=== PATIENT | male | born 1960 | race Asian ===

== ENCOUNTER 2021-10-03 20:37 | Inpatient (IN) | payer OTHER ==
[~2021-10-03] VITALS: Ht 160 cm; Wt 63.5 kg
[~2021-10-03 20:37] MED LIST: VECURONIUM BROMIDE 10 MG/VIAL (NORCURON) ONE
[2021-10-03 20:40] VITALS: BP_SYST 59
--- NOTE | 2021-10-03 20:40 | NUR ---
Placed in room 01 . Placed on teletypesetter monitor, blood pressure machine and pulse oximeter. To gown for exam. Side rails up.
--- NOTE | 2021-10-03 20:42 | NUR ---
Dr Little evaluating patient at bedside
[2021-10-03] MEDS ORDERED: NOREPINEPHRINE 4 MG/4 ML VIAL IV ONE (20:45)
--- NOTE | 2021-10-03 20:45 | NUR ---
# 20 gauge angiocath placed to R AC. Use of asceptic technique. Opsite placed over site. Blood return noted. Blood for lab drawn from site. Flushed with 10 cc of normal saline. No evidence of infiltration noted. Patient tolerated well.
--- NOTE | 2021-10-03 20:45 | NUR ---
Pt BIB [facility] from home due to ALOC and respiratory distress. Per , Pt was noted altered around 1600 and called 911 later due to respiratory distress. 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 Arrived to ED with IO to [facility]; adequate blood return; flushed with NS and patent. Pt is a full code per . at bedside. at bedside. Addendum: 10/03/21 at 2963 by [id number] CHAPIN [place]
--- NOTE | 2021-10-03 20:50 | NUR ---
# 16 FR Jimenez catheter with use of sterile technique. Immediate return of 50 cc of jonelle colored urine noted. Bedside drainage bag placed below level of bladder. Pt tolerated procedure well.
[2021-10-03] MEDS ORDERED: DEXTROSE 50% JECT 50 ML DISP.SYRIN IVP ONE (21:00)
[2021-10-03] MEDS ORDERED: NACL 0.9% 2,000 ML IV ONE (21:15)
[2021-10-03] MEDS ORDERED: NOREPINEPHRINE BITARTRATE 4 MG in NS 246 ML IV ONE (21:15)
[2021-10-03] MEDS ORDERED: ALBUMIN HUMAN 5% 250 ML IV ONE (21:15)
[2021-10-03] MEDS: D10W 1,000 ML IV SCH (21:20)
--- NOTE | 2021-10-03 21:26 | NUR ---
Pt off the unit for CT
[2021-10-03] MEDS ORDERED: VECURONIUM BROMIDE 10 MG/VIAL (NORCURON) IVP ONE (21:30)
--- NOTE | 2021-10-03 21:38 | NUR ---
Pt returned from CT at this time
[2021-10-03] MEDS ORDERED: ALBUMIN HUMAN 25% 100 ML IV ONE ×2 (21:46→22:30)
[2021-10-03 21:48] LABS: ANION GAP 24 (5-15); CHLORIDE 101 mmol/L (98-107); CREATININE 3.13 mg/dL (0.55-1.30); GLUCOSE 200 mg/dL (70-99); POTASSIUM 3.7 mmol/L (3.5-5.1); SODIUM SERUM 131 mmol/L (136-145); UREA NITROGEN, BLOOD 88 mg/dL (8-21)
[2021-10-03 21:55] LABS: ALANINE AMINOTRANSFERASE 163 U/L (12-78); ALBUMIN < 0.6 g/dL (3.4-4.8); ASPARTATE AMINOTRANSFERASE 742 U/L (10-37); TOTAL BILIRUBIN 11.7 mg/dL (0.0-1.0)
[2021-10-03 21:56] LABS: CALCIUM 6.4 mg/dL (8.4-11.0)
[2021-10-03 21:57] LABS: GFR AFRICAN AMERICAN 26 mL/min (>90)
[2021-10-03 22:02] LABS: ACETAMINOPHEN < 1 ug/mL (1-30)
[2021-10-03 22:03] LABS: MEAN CORPUSCULAR HEMOGLOBIN 33 pg (27-31); MEAN CORPUSCULAR HGB CONC 29 % (32-36)
[2021-10-03 22:10] LABS: HEMATOCRIT 20.8 % (36-54); MEAN CORPUSCULAR VOLUME 115 fL (79.0-98.0); RED BLOOD CELL COUNT(AUTO) 1.81 MIL/uL (4.2-6.2); WHITE BLOOD COUNT (AUTO) 22.8 K/uL (4.8-10.8)
[2021-10-03 22:11] LABS: PLATELET COUNT (AUTO) 68 K/uL (130-430); RED CELL DISTRIBUTION WIDTH 18.5 % (9.0-15.0)
[2021-10-03 22:16] LABS: BAND % (MANUAL) 3 % (0-6); BASOPHILS % (MANUAL) 0 % (0-2); EOSINOPHILS % (MANUAL) 0 % (0-7); LYMPHOCYTES % (MANUAL) 1 % (20-46); METAMYELOCYTES % 4 % (0-0); MONOCYTES % (MANUAL) 4 % (0-11)
--- NOTE | 2021-10-03 22:24 | NUR ---
Admit bed requested Patient will be admitted to care of . Admitted to ICU unit. Diagnosis Acute Resp Failure Inpatient (Yes or No) yes Observation (Yes or No) no Orientation concerns or request close to nursing station (Yes or No) no Covid Status pending On vent or bipap yes Isolation requirements no Needs a sitter no From Home (Yes or if No enter name of facility) yes Requires Dialysis (Yes or No) no Med Rec Completed (Yes of No) pending
[2021-10-03 22:29] LABS: ACETONE, SERUM NEGATIVE (NEGATIVE)
[2021-10-03] MEDS ORDERED: NACL 0.9% 1,000 ML IV ONE (22:30)
[2021-10-03] MEDS ORDERED: SODIUM BICARBONATE 8.4% JECT 50 MEQ/50 ML SYRINGE IVP ONE (22:30)
[2021-10-03] MEDS ORDERED: PIPERACILLIN/TAZO 3.375 GM in NS 50 ML IV ONE (22:30)
[2021-10-03] MEDS ORDERED: VANCOMYCIN HCL 1,000 MG in NS 250 ML IV ONE (22:30)
[2021-10-03] MEDS ORDERED: PANTOPRAZOLE SODIUM 80 MG in NS 100 ML IVP ONE ×2 (23:15)
[2021-10-03] MEDS: PANTOPRAZOLE SODIUM 40 MG in NS 50 ML IV SCH (23:15)
[2021-10-03] MEDS ORDERED: HYDROCORTISONE SOD SUCC 100 MG/2 ML VIAL IVP ONE (23:15)
[2021-10-03] MEDS ORDERED: OCTREOTIDE ACETATE 500 MCG in NS 97.5 ML IV SCH (23:15)
[2021-10-03] MEDS ORDERED: OCTREOTIDE ACETATE 50 MCG/ML AMP IVP ONE (23:15)
[2021-10-03] MEDS ORDERED: CALCIUM CHLORIDE 1 GM/10 ML DISP.SYRIN (14 mEq Ca++/SYR) IVP ONE (23:15)
[2021-10-03 23:25] VITALS: BP_SYST 103
--- NOTE | 2021-10-03 23:25 | NUR ---
Patient will be admitted to [facility]. Admitted to ICU unit. Will go to room ICU-6. Complete and up to date summary report printed. SBAR report given at bedside with opportunity for questions.
[2021-10-03 23:29] LABS: INR 7.2 (0.80-1.20); PROTHROMBIN TIME 64.4 SECS (9.5-12.5)
[2021-10-03] MEDS ORDERED: ALBUMIN HUMAN 25% 200 ML IV ONE (23:30)
[2021-10-03] MEDS ORDERED: D5NS 1,000 ML IV SCH (23:30)
--- NOTE | 2021-10-03 23:30 | NUR ---
Pt aware of transfer to ICU. Waiting in ICU waiting room until further notice.
[2021-10-03 23:43] VITALS: BP_SYST 119
[2021-10-03] MEDS ORDERED: [UNRECOGNIZED DRUG - CODE] PO (23:43)
[2021-10-03] MEDS ORDERED: LORA-259 PO (23:43)
[2021-10-03] MEDS ORDERED: MAGN400T10 PO (23:43)
[2021-10-03] MEDS ORDERED: POTA-197 PO (23:43)
[2021-10-03] MEDS ORDERED: ATEN-41 PO (23:43)
[2021-10-03] MEDS ORDERED: SENN8.6T19 PO (23:43)
[2021-10-03] MEDS ORDERED: TRAM50TA PO (23:43)
[2021-10-03] MEDS ORDERED: LOSA25TA3 PO (23:43)
[2021-10-03] MEDS ORDERED: FURO-150 PO (23:43)
[2021-10-03] MEDS ORDERED: HYOS0.1275 PO (23:43)
[2021-10-03] MEDS ORDERED: HAL2 PO (23:43)
[2021-10-03] MEDS ORDERED: ONDA-8 TL (23:43)
[2021-10-03] MEDS ORDERED: DEXTROSE 50% JECT 50 ML DISP.SYRIN IVP PRN (23:45)
[2021-10-04] VITALS (50 sets, daily range): BP systolic 81–141
[2021-10-04] LABS: ALCOHOL, BLOOD < 3 mg/dL (<10)
[2021-10-04 00:01] LABS: C-REACTIVE PROTEIN QUANT 4.7 mg/dL (0-0.5)
[2021-10-04] MEDS ORDERED: PANTOPRAZOLE SODIUM 40 MG/VIAL (PROTONIX) ONE ×2 (00:31)
[2021-10-04] MEDS: PANTOPRAZOLE SODIUM 40 MG in NS 50 ML IV SCH ×7 (00:38→23:33)
[2021-10-04] MEDS: D10W 1,000 ML IV SCH (00:39)
[2021-10-04] MEDS ORDERED: PIPERACILLIN/TAZOBACTAM 3.375 GM/VIAL (ZOSYN) IV ONE (00:44)
[2021-10-04] MEDS ORDERED: VANCOMYCIN HCL 1000 MG/VIAL IV ONE (00:44)
[2021-10-04] MEDS ORDERED: OCTREOTIDE ACETATE 200 MCG/1 ML 5ML VIAL ONE (00:55)
[2021-10-04] MEDS ORDERED: SODIUM BICARBONATE 8.4% JECT 50 MEQ/50 ML SYRINGE IVP ONE (01:15)
--- NOTE | 2021-10-04 01:15 | NUR ---
SPOKE TO DR DAWIT MONDRAGON RESULTS RELAYED TO HIM WITH ORDERS MADE AND CARRIED OUT, SEE CPOE. PRIMARY RN MADE AWARE.
[2021-10-04] MEDS ORDERED: SODIUM BICARBONATE 8.4% JECT 50 MEQ/50 ML SYRINGE ONE ×3 (01:26→12:49)
[2021-10-04] MEDS ORDERED: SODIUM BICARBONATE 8.4% VIAL 50 MEQ/50 ML VIAL ONE (01:26)
[2021-10-04] MEDS: SODIUM BICARBONATE 8.4% JECT 150 MEQ in D5W 1,000 ML IVP SCH ×3 (01:48→23:33)
[2021-10-04] MEDS ORDERED: CEFEPIME 1 GM in D5W 50 ML IV ONE (02:00)
[2021-10-04] MEDS ORDERED: NOREPINEPHRINE 4 MG/4 ML VIAL IV ONE (02:54)
[2021-10-04] MEDS: NOREPINEPHRINE BITARTRATE 32 MG in NS 218 ML IV PRN (03:05)
--- NOTE | 2021-10-04 03:50 | NUR ---
CONSULTATION PAGED/CALLED Reason for Consultation: ACUTE RENAL FAILURE Person Who was Notified: JEFF Consulting Physician: Laboratory Worker Specialty: Ordering Physician:
--- NOTE | 2021-10-04 03:55 | NUR ---
CONSULTATION PAGED/CALLED Reason for Consultation: SEPSIS Person Who was Notified: JEFF Consulting Physician: [employer] Specialty: ID Ordering Physician:
[2021-10-04] MEDS ORDERED: CEFEPIME 1 GM/VIAL (MAXIPIME) ONE (04:03)
--- NOTE | 2021-10-04 08:17 | NUR ---
Geriatric Nursing Assistant *LATE ENTRY* LINDY Vero responded to a request for social service consult to obtain additional information regarding end of life care from patient's spouse from ICU. TREASURY AGENT informed ICU Manufacturing Operations Manager was already addressing this issue. TREASURY AGENT also informed ICU patient's spouse shared patient's sibling was traveling from [place] in the hopes of being able to visit patient. TREASURY AGENT will continue to be available as needed
[2021-10-04] MEDS ORDERED: *CUBICIN 6 MG/KG Q48H/PHARMACY XX PRN (11:15)
[2021-10-04 11:34] LABS: BASOPHILS # (AUTO) 0.1 K/uL (0.0-0.2); BASOPHILS % (AUTO) 0.2 % (0.0-2.0); EOSINOPHILS # (AUTO) 1.4 K/uL (0.0-0.4); EOSINOPHILS % (AUTO) 4.9 % (0.0-4.0); HEMATOCRIT 30.4 % (36-54); HEMOGLOBIN 9.4 g/dL (14.0-18.0); LYMPHOCYTES # (AUTO) 0.5 K/uL (1.0-5.5); LYMPHOCYTES % (AUTO) 1.9 % (20.5-51.5); MEAN CORPUSCULAR HEMOGLOBIN 31 pg (27-31); MEAN CORPUSCULAR HGB CONC 31 % (32-36); MEAN CORPUSCULAR VOLUME 101 fL (79.0-98.0); MONOCYTES # (AUTO) 0.9 K/uL (0.0-1.0); MONOCYTES % (AUTO) 3.1 % (1.7-9.3); NEUTROPHILS # (AUTO) 26.3 K/uL (1.8-7.7); RED BLOOD CELL COUNT(AUTO) 3.01 MIL/uL (4.2-6.2); RED CELL DISTRIBUTION WIDTH 21.9 % (9.0-15.0); WHITE BLOOD COUNT (AUTO) 29.2 K/uL (4.8-10.8)
[2021-10-04 11:39] LABS: CREATININE 3.21 mg/dL (0.55-1.30); PLATELET COUNT (AUTO) 38 K/uL (130-430); POTASSIUM 4.1 mmol/L (3.5-5.1)
[2021-10-04 11:44] LABS: INR 3.1 (0.80-1.20)
--- NOTE | 2021-10-04 11:45 | NUR ---
Received a call from [facility] for critical value Platelet level 38. Will update Dr Weaver. Patient is currently receiving blood products including platelets.
[2021-10-04 11:51] LABS: ALBUMIN 1.3 g/dL (3.4-4.8)
[2021-10-04] MEDS ORDERED: NS IV SCH (12:00)
[2021-10-04] MEDS ORDERED: DAPTOMYCIN IV SCH (12:00)
[2021-10-04 12:01] LABS: TOTAL BILIRUBIN 14.6 mg/dL (0.0-1.0)
[2021-10-04 12:12] LABS: PROTHROMBIN TIME 29.1 SECS (9.5-12.5)
[2021-10-04 12:24] LABS: PHOSPHORUS 13.6 mg/dL (2.7-4.5)
[2021-10-04] MEDS ORDERED: SODIUM BICARBONATE 8.4% JECT 50 MEQ/50 ML SYRINGE IVP SCH (12:30)
[2021-10-04] MEDS ORDERED: FLUCONAZOLE 100 mg/ NS 50 ML IV SCH (13:00)
--- NOTE | 2021-10-04 13:59 | NUR ---
Spoke w/ patient's -June Hartman at [phone]. She stated she would like to take her home, if his medical condition allows, on hospice with [facility]. He was on [facility] when he came to the hospital. I asked her about the code status for her hsuband. She stated the MD told her he was doing poorly, she would like to keep him alive until October 11,when his sister is coming from [place]. He would like to see her, she is the only family he has.
[2021-10-04 14:05] LABS: NEUTROPHILS % (AUTO) 89.9 % (40.0-70.0)
--- NOTE | 2021-10-04 14:43 | NUR ---
Spoke w/patient's -June Hartman at [phone]. She stated the patient had been on home hospice w/ [facility] and she would like him to go back on hospice w/[facility] if his condition allows. I asked her about the code status for her and she stated the MD had informed her that her 's condition was poor. She also stated she wanted him to live until October 11. His sister is coming from [facility] on October 11 and he wants to see her, she is the only family he has. She did not give me a final answer as to the code status she wanted for her .
--- NOTE | 2021-10-04 17:31 | NUR ---
Called and spoke to Dr Henning regarding the aerobic gram negative jackie blood culture result. Patient is covered by [employer] antibiotics currently dosed on this admission.
[2021-10-05] VITALS (33 sets, daily range): BP systolic 80–111
[2021-10-05] MEDS ORDERED: CEFEPIME 1 GM in D5W 50 ML IV SCH (05:00)
[2021-10-05] MEDS: PANTOPRAZOLE SODIUM 40 MG in NS 50 ML IV SCH ×3 (05:11→15:08)
--- NOTE | 2021-10-05 06:20 | NUR ---
ALL CARES DONE, VSS, HYPOTHERMIC, WARMED BLANKET ON, MINIMAL MOBILITY AND TURNING DONE, OLIGURIC OUTPUT, AT BEDSIDE MOST OF THE NIGHT. NO SEDATION UNRESPONSIVE,PUPILS NON REACTIVE AND FIXED NO CORNEAL RESPONSE.NO GAG NO COUGH NOTED. LEVOPHED AT 0.17 MCG,PROTONIX DRIP AT 8MG/HR. REMAINS GENERALIZED ICTERIC AND ABDOMEN DISTENDED FIRM AND GUARDED, NO BM,NGT IN SITU TO LWIS WITH COFFEE GROUND ASPIRATES MODERATE AMOUNT.CONT CARE.
[2021-10-05 06:51] LABS: CREATININE 3.43 mg/dL (0.55-1.30); POTASSIUM 4.3 mmol/L (3.5-5.1); TOTAL BILIRUBIN 14.8 mg/dL (0.0-1.0)
[2021-10-05 07:58] LABS: HEMATOCRIT 26.2 % (36-54); HEMOGLOBIN 7.9 g/dL (14.0-18.0); MEAN CORPUSCULAR HEMOGLOBIN 32 pg (27-31); MEAN CORPUSCULAR HGB CONC 30 % (32-36); MEAN CORPUSCULAR VOLUME 104 fL (79.0-98.0); PLATELET COUNT (AUTO) 52 K/uL (130-430); RED BLOOD CELL COUNT(AUTO) 2.52 MIL/uL (4.2-6.2)
--- NOTE | 2021-10-05 08:00 | NUR ---
OPENING NOTE PT LYING IN BED WITH HOB ELEVATED 45 DEGREES. LUNG SOUNDS ARE DIMINISHED AND RHONCHI. HR IS AFIB IN THE HIGH 90'S. SBP IS 70'S-119'S. PT ON LEVOPHED AT 0.17 MCS/KG/MIN. 3 AMPS BICARB DRIP IN D5 WATER RUNNING AT 100MLS/HR. PROTONIX RUNNING AT 10MLS/HR. BED BRAKES ON, BED RAILS UP, CALL LIGHT WITHIN REACH. Addendum: 10/05/21 at 1553 by Rajeev Fong RN VENT SETTINGS: A/C 18 RESP/MIN, TIDAL VOLUME 400, FI02 100% AND PEEP 0. ET TUBE 7.5 AND 24CM AT THE LIP.
--- NOTE | 2021-10-05 08:25 | NUR ---
HIGH ALERT NOTE: Called Dr. PASTOR back at PHONE NUMBER identified within the medical roster to verify physician authenticity. DR WOULD LIKE TO GIVE MORPHINE 2 MG Q2HRS PRN.
--- NOTE | 2021-10-05 08:30 | NUR ---
DR GUZMAN AT BEDSIDE
[2021-10-05 08:33] LABS: WHITE BLOOD COUNT (AUTO) 31.1 K/uL (4.8-10.8)
[2021-10-05] MEDS ORDERED: MORPHINE 2 MG/ML INJ. SYRINGE ONE (08:41)
[2021-10-05] MEDS ORDERED: NALOXONE HCL 0.4 MG/ML AMP (NARCAN) IVP PRN ×2 (08:45→10:00)
--- NOTE | 2021-10-05 08:45 | NUR ---
AT BEDSIDE INFORMED DR GUZMAN WOULD LIKE TO EXTUBATE PT WHEN PT'S FRIEND ARRIVES. WILL FOLLOW ORDERS.
--- NOTE | 2021-10-05 09:00 | NUR ---
Received a critical lab results platelet 47 and CO2 10. Patient is on comfort measures at this time.
--- NOTE | 2021-10-05 09:00 | NUR ---
HIGH ALERT NOTE: Dr. GUZMAN AT BEDSIDE. MORPHINE DRIP TO BE ORDERED AND ADMINISTERED SHOULD DECIDE COMFORT MEASURES ONLY.
--- NOTE | 2021-10-05 09:05 | NUR ---
DR ROSALES AT BEDSIDE
[2021-10-05] MEDS ORDERED: SODIUM BICARBONATE 0.5 MEQ/ML VIAL INJ ONE (09:15)
[2021-10-05 09:47] LABS: PHOSPHORUS 27.2 mg/dL (2.7-4.5)
[2021-10-05] MEDS ORDERED: SODIUM BICARBONATE 8.4% JECT 50 MEQ/50 ML SYRINGE IVP ONE (10:00)
[2021-10-05] MEDS ORDERED: MORPHINE SULFATE IN 0.9 % NACL 100 ML IV PRN (10:00)
[2021-10-05 10:09] LABS: INR 4.9 (0.80-1.20); PROTHROMBIN TIME 44.7 SECS (9.5-12.5)
--- NOTE | 2021-10-05 10:25 | NUR ---
DR VAUGHAN AT BEDSIDE
[2021-10-05] MEDS: MORPHINE 2 MG/ML INJ. SYRINGE IVP PRN ×2 (10:50→12:47)
[2021-10-05] MEDS: SODIUM BICARBONATE 8.4% JECT 150 MEQ in D5W 1,000 ML IVP SCH ×2 (11:15→23:22)
--- NOTE | 2021-10-05 11:23 | NUR ---
RT NOTES PT REFUSED RT TO ENTER THE PT ROOM AT THIS TIME. UNABLE TO OBTAIN VENT CHECK AT THIS TIME. WILL CONTINUE TO MONITOR.
--- NOTE | 2021-10-05 12:46 | NUR ---
Marketing Intern [employer]ATERNITY HOUSE COOK met with in pts. ICU room, June Hartman who is very concerned for her and does not want him to suffer or feel any pain. stated she wants to take pt off all the vent and meds so he can pass away, but pts. sister in [facility] is planning to come over from [place] next Monday. feels that is a long time to have pt. on the vent and prolong his discomfort. stated pts. co-worker, Wayne , is on his way to this hospital and will call the sister in [place] and speak to her in Panamanian to explain this diffiuclt circumstances with her. wants the sister to know she would like to discontinue medical aid and provide comfort measures. FRATERNITY HOUSE COOK asked if there was someone would like to call to be her with her or to call any knowledge management advisor. stated she has no one and that they are practicing Buddhists. has places a winston cover over pt as well as placed a music player near pts. ears and it is playing music or chants. stated she tried to call a [employer] but they don't want to come because of Covid. FRATERNITY HOUSE COOK called [facility] Ervin, and spoke to a volunteer who will ask if someone will be able to come out. Volunteer did not want to give her name and stated if they do not call back, the answer is, there is no one available. FRATERNITY HOUSE COOK called Alexsander Garza, and left a message. FRATERNITY HOUSE COOK went back to the ICU and family friend, Wayne was in the room on face time with pts. sister in [facility]. Wayne stated the sister is still trying to decide. FRATERNITY HOUSE COOK told the she had the final decision as to what she decides to do. stated she is ok and does not need anything else. FRATERNITY HOUSE COOK asked her to call KRISTINA Pham if she needs anything else. Once pt. does pass away, stated she has planned to make arrangements with Greg Rivero at [phone]. FRATERNITY HOUSE COOK will remain available as needed.
--- NOTE | 2021-10-05 14:00 | NUR ---
MORPHINE DRIP STARTED AT 5MG/HR. AT BEDSIDE. EDUCATED REGARDING BENEFITS OF MORPHINE IN COMFORT MEASURES.
[2021-10-05 15:13] LABS: BAND % (MANUAL) 28 % (0-6)
[2021-10-05 15:14] LABS: BASOPHILS % (MANUAL) 0 % (0-2); EOSINOPHILS % (MANUAL) 0 % (0-7); LYMPHOCYTES % (MANUAL) 3 % (20-46); METAMYELOCYTES % 3 % (0-0); MONOCYTES % (MANUAL) 3 % (0-11)
[2021-10-05] MEDS: NOREPINEPHRINE BITARTRATE 32 MG in NS 218 ML IV PRN (18:17)
[2021-10-05] MEDS ORDERED: MEROPENEM 500 MG in NS 50 ML IV SCH (21:00)
[2021-10-06] VITALS: BP_SYST 92
[2021-10-06 01:00] VITALS: BP_SYST 94
[2021-10-06 01:48] VITALS: BP_SYST 86
[2021-10-06 02:00] VITALS: BP_SYST 85
[2021-10-06 03:00] VITALS: BP_SYST 88
[2021-10-06 04:00] VITALS: BP_SYST 79
--- NOTE | 2021-10-06 05:51 | NUR ---
Received report on patient. pt is on palliative care and comfort care should be give. Levo is running to help maintain a sable BP Lisa Goldman
--- NOTE | 2021-10-06 05:54 | NUR ---
Pt's refused morning labs stating she doesn't want the patient be touched. She wished
--- NOTE | 2021-10-06 06:10 | NUR ---
Time of was pronounced at 0604. Pt's is at bedside
[2021-10-06] MEDS ORDERED: SODIUM BICARBONATE 8.4% JECT 50 MEQ/50 ML SYRINGE IVP ONE (14:18)
[2021-10-06] MEDS ORDERED: DEXTROSE 50% JECT 50 ML DISP.SYRIN IVP ONE (14:18)
[2021-10-06] MEDS ORDERED: CALCIUM CHLORIDE 1 GM/10 ML DISP.SYRIN (14 mEq Ca++/SYR) IV ONE (14:18)
[2021-10-06] MEDS ORDERED: EPINEPHrine JECT 0.1 MG/ML SYR IVP ONE (14:18)
== END 2021-10-06 06:04 | DRG 871 ==
LOC: SED 20:37 → SIC 22:26
PROVIDERS: ADMIT Internal Medicine; ATTEND Internal Medicine
PROC: 30233K1 Transfusion of Nonautologous Frozen Plasma into Peripheral Vein, Percutaneous Approach (ICD-10-PCS; 2021-10-03)
PROC: 0BH17EZ Insertion of Endotracheal Airway into Trachea, Via Natural or Artificial Opening (ICD-10-PCS; 2021-10-03)
PROC: 5A1945Z Respiratory Ventilation, 24-96 Consecutive Hours (ICD-10-PCS; 2021-10-03)
PROC: 30233N1 Transfusion of Nonautologous Red Blood Cells into Peripheral Vein, Percutaneous Approach (ICD-10-PCS; 2021-10-04)
PROC: 30233R1 Transfusion of Nonautologous Platelets into Peripheral Vein, Percutaneous Approach (ICD-10-PCS; 2021-10-04)
PROC: 02HV33Z Insertion of Infusion Device into Superior Vena Cava, Percutaneous Approach (ICD-10-PCS; principal; 2021-10-05)
PROC: B548ZZA Ultrasonography of Superior Vena Cava, Guidance (ICD-10-PCS; 2021-10-05)
DX: A41.9 Sepsis, unspecified organism (principal); J96.00 Acute respiratory failure, unspecified whether with hypoxia or hypercapnia; R65.21 Severe sepsis with septic shock; E43 Unspecified severe protein-calorie malnutrition; J18.9 Pneumonia, unspecified organism; D62 Acute posthemorrhagic anemia; K92.2 Gastrointestinal hemorrhage, unspecified; D68.9 Coagulation defect, unspecified; N17.9 Acute kidney failure, unspecified; C22.1 Intrahepatic bile duct carcinoma; C79.9 Secondary malignant neoplasm of unspecified site; K72.90 Hepatic failure, unspecified without coma; D69.6 Thrombocytopenia, unspecified; C76.0 Malignant neoplasm of head, face and neck; E83.51 Hypocalcemia; Z20.822 Contact with and (suspected) exposure to COVID-19; Z85.89 Personal history of malignant neoplasm of other organs and systems; Z68.24 Body mass index [BMI] 24.0-24.9, adult
CPT/HCPCS: 36415; 36430; 36600; 70450-TC; 71045; 74018; 76376; 76770; 80053; 82009; 82140; 82550; 82803-TC; 82962; 83605; 83735; 83880; 84100; 85007; 85025; 85027; 85610-TC; 85730-TC; 86140; 86886; 86900; 86901; 86920; 87040; 87070-TC; 87081; 87205-TC; 93005; 94002; 94003; 94640; 99285; C9113; G0480; G0481; G0482; J0171; J0692; J0878; J1450; J1720; J2185; J2270; J2354; J2543; J3370; J3490; J7050; J7060; P9021; P9034; P9041; P9046; P9059